=== PATIENT | male | born 1935 | race Caucasian/White ===

== ENCOUNTER → 2022-03-05 | Emergency (ER) | payer OTHER ==
[~2022-03-05] VITALS: Ht 170.2 cm; Wt 68.0 kg
[~2022-03-05] MED LIST: ADULT LOW DOSE81 M1; ATORVASTATIN CA40 MG PO; BRILINTA90 MG PO; COZAAR100 MG PO; PEPCID AC10 MG; TOPROL XL50 M1
== END | disposition left against medical advice (07) ==
LOC: ER 16:13
DX: L03.114 Cellulitis of left upper limb (principal); I10 Essential (primary) hypertension; N18.6 End stage renal disease; Z99.2 Dependence on renal dialysis